=== PATIENT | male | born 1955 | race Caucasian/White ===

== ENCOUNTER 2023-01-17 09:28 | Outpatient (CLI) | payer MEDICARE, SELFPAY | END 2023-01-17 09:29 | disposition home or self-care (01) | LOC: NFLDREF 09:29 | PROVIDERS: PCP Internal Medicine; Visit Provider Internal Medicine | DX: E78.5 Hyperlipidemia, unspecified (principal); E66.9 Obesity, unspecified; R73.03 Prediabetes; Z86.73 Personal history of transient ischemic attack (TIA), and cerebral infarction without residual deficits | CPT/HCPCS: 80061; 82947; 85130 ==

== ENCOUNTER 2024-07-18 08:15 | Outpatient (CLI) | payer MEDICARE, SELFPAY ==
--- OUTSIDE RECORDS SUMMARY | 2024-07-18 11:00 | XMS_ITS | Clinical Summary ---
Author Organization [employer] [facility] Address [place], [place] [address] Care Team Providers Care Dock Worker Name Role Phone Jovita Garcia MD Primary Care Provider [phone] Allergies Active Allergy Reactions Criticality Noted Date Comments Simvastatin Myalgia 05/10/2010 At high doses devoloped myalgia Medications Medication Sig Dispensed Refills Start Date End Date Status metoprolol (LOPRESSOR) 25 mg tablet Take 0.5 tablets by mouth 2 times daily. 30 tablet 2 01/13/2010 Active amoxicillin (AMOXIL) 500 mg capsule Take 2,000 mg (4 capsules) one time 30-60 minutes prior to dental procedure. Prophylactic prior to dental procedure. 4 capsule 0 11/14/2012 Active warfarin (COUMADIN) 2.5 mg tablet Take 1 tablet by mouth once daily. 0 01/28/2018 Active omeprazole (PRILOSEC) 20 mg Delayed-Release capsule Take 1 Capsule (20 mg) by mouth once daily before a meal. 0 02/28/2023 Active Active Problems Problem Noted Date Diagnosed Date Acute upper GI hemorrhage 07/11/2020 Overview (07/13/2020): Jun 2020 secondary to esophageal tear s/p hemostatic clips Esophageal tear, initial encounter 07/11/2020 History of embolic stroke 07/11/2020 Anemia due to acute blood loss 07/11/2020 Paroxysmal A-fib 07/11/2020 Acute blood loss anemia 10/22/2016 Esophageal foreign body 10/20/2016 Acute kidney injury 10/01/2012 A-fib 09/29/2012 S/P AVR (aortic valve replacement) 09/26/2012 Overview (09/27/2012): Aortic valve and ascending aorta replacement with a [address] [facility] [employer] composite graft[address] Dr Percy RODAS (arteriosclerotic heart disease) 01/13/2010 Overview (01/13/2010): - angiogram 01/05/10: ?? The left main artery appeared normal. The LAD is angulated after D1, mild to moderate disease at this location. The circumflex artery has minimal disease. The RCA is dominant and appeared normal. - 01/06/10 Cardiac MRI: Multiple areas of delayed hyperenhancement involving the inferolateral wall, anterolateral wall, basal anteroseptum, and the basal to apical inferior wall. Microvascular obstruction visualized involving the very basal anteroseptum. Coronary embolism 01/13/2010 Overview (01/13/2010): - 01/06/10 Cardiac MRI: Multiple areas of delayed hyperenhancement involving the inferolateral wall, anterolateral wall, basal anteroseptum, and the basal to apical inferior wall. Microvascular obstruction visualized involving the very basal anteroseptum. Hypertrophic cardiomyopathy 01/13/2010 Overview (01/13/2010): - 01/06/10 Cardiac MRI: Hypertrophic cardiomyopathy with maximum wall thickness involving the basal anteroseptum, 22 mm. This is not definitive for familial HCM in the setting of significant aortic valve disease. No systolic anterior motion. Bicuspid aortic valve 01/13/2010 Overview (01/13/2010): - 01/06/10 Cardiac MRI: Bicuspid aortic valve with likely moderate aortic stenosis. Degree is not quantitated. There is fusion of the left and right coronary cusps. Lupus anticoagulant disorder 01/13/2010 Overview (01/13/2010): - + LAC - coumadin Dyslipidemia 01/13/2010 Overview (01/13/2010): - 01/06/10: TC 152, TG 103, HDL 31, LDL 100 - goal LDL < 70 in setting of ASHD Ascending aorta dilatation 01/13/2010 Overview (01/13/2010): - Cardiac MRI 01/06/10: Moderately dilated ascending aorta involving the sinuses of Valsalva measuring 4.9 cm. The proximal ascending aorta is 4 cm. On MR aortogram, there is no evidence of dissection or coarctation. Embolic Stroke with Diplopia 01/08/2010 Overview (01/13/2010): - 01/05/10 MRI Brain: Multiple punctate foci of acute infarction involving left frontal, parietal and occipital cortex as well as the brainstem. No hemorrhage or mass effect. A presence of multiple acute infarctions in multiple vascular territories suggest a central embolic source. - Seen by Neurology ACS (acute coronary syndrome) 01/05/2010 Diplopia 01/05/2010 Migraine 01/05/2010 Stiffness of joint, lower leg Acute respiratory failure Upper GI bleed Immunizations Name Administration Dates Next Due COVID-19 vaccine (Moderna 100mcg/0.5mL) CITLALLI ROBERTS 01/20/2021,12/22/2020 Tdap 09/08/2011 Family History Medical History Relation Name Comments Cancer Father Other Other No history of s trokes, heart disease in the family. Relation Name Status Comments Father Other Social History Tobacco Use Types Packs/Day Years Used Date Smoking Tobacco: Never Smokeless Tobacco: Never Tobacco Cessation:Counseling Given: Yes Alcohol Use Standard Drinks/Week Comments Yes 0 (1 standard drink = 0.6 oz pure alcohol) occasional drink; twice monthly Sex and Gender Information Value Date Recorded Sex Assigned at Not on file Gender Identity Not on file Sexual Orientation Not on file Obstetrics History Last Filed Vital Signs Vital Sign Reading Time Taken Comments Blood Pressure 133/81 02/28/2023 8:52 AM CDT Pulse 48 02/28/2023 8:52 AM CDT Temperature 36.6 ??C (97.9 ??F) 07/12/2020 4:00 PM CD T Respiratory Rate 18 04/06/2021 8:19 AM CDT Oxygen Saturation 98% 02/28/2023 8:52 AM CDT Inhaled Oxygen Concentration - - Weight 101.6 kg (224 lb) 02/28/2023 8:52 AM CDT Height 182.9 cm (6') 07/09/2020 6:02 PM CDT Body Mass Index 30.38 07/09/2020 6:02 PM CDT Plan of Treatment Health Maintenance Due Date Last Done Comments Depression screening for age 12+ 1968 Hepatitis C screening for age 18-79 1974 Colonoscopy through age 75 2001 Zoster (shingles) series for age 50+ (1 of 2) 2006 Lipids for age 45-75 09/25/2017 09/25/2012, 01/07/20 10 BMI (ht and wt on same day) for age 18+ 01/28/2019 01/28/2018 Tetanus booster 09/08/2021 09/08/2011 Medicare Wellness for age 65+ 2021 Pneumococcal series for age 65+ (1 of 1 - PCV) 2021 COVID-19 vaccine series ( season) 2024 08/06/2022, 01/20/2021, 12/22/2020 Influenza for age 65+ 06/15/2024 Tdap Completed 09/08/2011 Medical Devices Implanted Type Area Assistant Business Manager Device Identifier Shelf Expiration Date Model / Serial / Lot Anw Hh [id number] Implanted:Qty: 1 on 09/26/2012 by Alan Greer MD at [facility] Aortic Arch [facility] Cardiac Surgery 10/14/2015 [id number] / [id number] / [id number] Procedures Procedure Name Priority Date/Time Associated Diagnosis Comments LIPID PANEL Add On 09/25/2012 9:15 AM [employer] from Last 3 Months or Most Recently Relevant to Health Maintenance Results * (ABNORMAL) LIPID PANEL (09/25/2012 9:15 AM [employer]) CHOLESTEROL,TOTA L 156 100 - 199 mg/dL [facility] TRIGLYCERIDES 145 <150 mg/dL [facility] HDL CHOLESTEROL 32(L) >40 mg/dL [facility] CHOL/HDL RATIO 4.88(H) <4.50 [facility] NON-HDL CHOLESTEROL 124 Undefined mg/dL [facility] LDL CHOLESTEROL 95 <131 mg/dL [facility] PATIENT STATUS Fasting [facility] Blood specimen (specimen) BLOOD SPECIMEN / Unknown 09/25/2012 9:15 AM [employer] 09/25/2012 10:25 AM [employer] Carol Pastor [employer]MI[employer] [facility] [place]NAL ZIP [id number] [place] [id number] from Last 3 Months or Most Recently Relevant to Health Maintenance Advance Directives Documents on File Type Date Recorded Patient Informatics Pharmacist Expl anation Healthcare Directive 09/28/2012 11:39 AM Healthcare Directive * Full Code (Latest Code Status on File) Date Activated Date Inactivated Comments 07/09/2020 6:23 PM 07/13/2020 4:36 PM Question Answer Comments Code Status Discussion: Not Discussed * Full Code Date Activated Date Inactivated Comments 10/21/2016 12:37 PM 10/24/2016 1:40 PM * Full Code Date Activated Date Inactivated Comments 10/20/2016 7:45 AM 10/20/2016 4:25 PM * Full Code Date Activated Date Inactivated Comments 10/20/2016 4:14 AM 10/20/2016 7:45 AM Question Answer Comments Code Status Discussion: Discussed * Full Code Date Activated Date Inactivated Comments 09/26/2012 12:50 PM 10/04/2012 5:09 PM Care Teams Dock Worker Relationship Specialty Start Date End Date Jovita Garcia MD [address] [place] [address] PCP - General 02/16/10
== END 2024-07-18 08:16 | disposition home or self-care (01) ==
LOC: NFLDREF 10:58
PROVIDERS: PCP Internal Medicine; Referring Provider Internal Medicine; Visit Provider Internal Medicine
DX: R73.03 Prediabetes (principal); D68.59 Other primary thrombophilia; I25.10 Atherosclerotic heart disease of native coronary artery without angina pectoris; E66.9 Obesity, unspecified; E78.5 Hyperlipidemia, unspecified; Z12.5 Encounter for screening for malignant neoplasm of prostate
CPT/HCPCS: 80061; 82947; 85260; G0103

== ENCOUNTER 2024-09-25 13:20 | Outpatient (CLI) | payer MEDICARE, SELFPAY | END 2024-09-25 13:21 | disposition home or self-care (01) | LOC: NFLDREF 09-28 06:59 | PROVIDERS: PCP Internal Medicine; Referring Provider Internal Medicine; Visit Provider Internal Medicine | DX: D68.59 Other primary thrombophilia (principal) | CPT/HCPCS: 85260 ==

== ENCOUNTER 2024-11-10 10:32 | Emergency (ER) | payer MEDICARE, SELFPAY ==
[2024-11-10] VITALS (76 sets, daily range): BP systolic 94–182; BP diastolic 64–112; PULSE 65–83; RESP 16; TEMP 36.4; O2SAT 93–98; BMI 29.2
--- OUTSIDE RECORDS SUMMARY | 2024-11-10 10:35 | XMS_ITS | Clinical Summary ---
Author Organization [facility] Address [place], [place] [address] Care Team Providers Care Stack Matcher Name Role Phone Jovita Garcia MD Primary Care Provider [phone] Allergies Active Allergy Reactions Criticality Noted Date Comments Simvastatin Myalgia 05/10/2010 At high doses devoloped myalgia Medications amoxicillin (AMOXIL) 500 mg capsule Take 2,000 mg (4 capsules) one time 30-60 minutes prior to dental procedure. Prophylactic prior to dental procedure. 4 capsule 0 11/14/19 13 Active warfarin (COUMADIN) 2.5 mg tablet Take 1 tablet by mouth once daily. 0 01/29/20 18 Active omeprazole (PRILOSEC) 20 mg Delayed-Release capsule Take 1 Capsule (20 mg) by mouth once daily before a meal. 0 02/29/20 23 Active finasteride (PROSCAR) 5 mg tablet Take 5 mg by mouth once daily. 08/25/20 24 Active ezetimibe (ZETIA) 10 mg tablet Take 10 mg by mouth once daily. 07/21/20 24 Active cephalexin 500 mg capsule Take 500 mg by mouth three times daily. 08/06/20 24 Active alfuzosin (UROXATRAL) 10 mg Sustained-Relea se tablet Take 10 mg by mouth once daily with a meal. 08/25/20 24 Active nitroglycerin (NITROSTAT) 0.[address] 0.4 mg under the tongue every 5 minutes if needed for Chest Pain. Up to 3 tablets in 15 minutes. Active metoprolol tartrate (LOPRESSOR) 25 mg tabletIndicatio ns:Atrial flutter, unspecified type (HC) Take 0.5 Tablets (12.5 mg) by mouth two times daily. 30 Tablet 2 10/28/19 25 Active metoprolol (LOPRESSOR) 25 mg tablet Take 0.5 tablets by mouth 2 times daily. 30 tablet 2 01/14/20 10 025 Discontinued metoprolol tartrate (LOPRESSOR) 25 mg tabletIndicatio ns:Atrial flutter, unspecified type (HC) Take 0.5 Tablets (12.5 mg) by mouth 2 times daily if needed (for recurrent atrial flutter or HR > 100 bpm at rest). 30 Tablet 2 10/28/19 25 025 Discontinued Active Problems Problem Noted Date Diagnosed Date [...] disease) 01/13/2010 Overview (01/13/2010): - angiogram 01/05/10: The left main artery appeared normal. The [...] leg Acute respiratory failure Upper GI bleed Encounters Date Type Department Care Team Description 10/28/2024 1:02 PM PLANER HAND Anesthesia Event [facility] [address] [place] [address] Bebe Taylor MD Schlatter Von Payne, CONFERENCE AND EVENT ORGANISER 10/28/2024 10:17 AM PLANER HAND - 10/28/2024 2:14 PM PLANER HAND Hospital Encounter [facility] [address] [place] [address] Carlos Cunningham MD Anderson, Rebecca Faye, MD Atrial flutter, unspecified type (HC) (Primary Dx) Discharge Disposition: Home Self Care 10/28/2024 Travel 10/27/2024 Telephone [facility] [address] [place] [address] Carlos Cunningham MD Results (Factor X 19%-ok to proceed with cardioversion tomorrow (has had 4 weeks of therapeutic Factor X's)) 10/23/2024 10:00 AM PLANER HAND Orders Only [facility] [address] [place] [address] [place] 10/22/2024 Travel 10/20/2024 11:00 AM PLANER HAND Ancillary Procedure [facility] [address] [place] [address] 10/20/2024 Travel 10/20/2024 Telephone [facility] [address] [place] [address] Carlos Cunningham MD Results (Factor X) 10/16/2024 10:00 AM PLANER HAND Orders Only [facility] [address] [place] [address] [place] [facility] 10/16/2024 Travel 10/13/2024 Travel 2024 10:00 AM PLANER HAND Orders Only [facility] [address] [facility] [place] [address] Lab, [place] [facility] 2024 Travel 10/07/2024 Orders Only [facility] [address] [place] [address] Carlos Cunningham MD Lab 10/06/2024 Telephone [facility] [address] [facility] [address] [place], [place] [address] Carlos Cunningham MD Results 10/02/2024 9:45 AM PLANER HAND Orders Only [facility] [address] [place], [place] [address] Lab, [place] [facility] 10/02/2024 Travel 09/19/2024 Telephone [facility] [address] [place] [address] Carlos Cunningham MD Results (factor 10 chromogenic lab result ) 09/18/2024 2:40 PM PLANER HAND Orders Only [facility] [address] [place] [address] Lab 09/18/2024 1:30 PM PLANER HAND Office Visit [facility] [address] [place] [address] Carlos Cunningham MD Consult (New pt/Self referral/Reestablish care last seen 2018, AVR/zio monitor at [facility]) 09/18/2024 Orders Only [facility] [address] [place] [address] Carlos Cunningham MD <No scans attached> 09/18/2024 Travel from Last 3 Months Immunizations Name Administration Dates Next Due COVID-19 [...] oz pure alcohol) occasional drink; twice monthly Interpersonal Safety Answer Date Record ed Are you being hit, kicked, p ushed or yelled at (see row info)? No 10/28/2024 Interpersonal Safety Abuse 12 - 18 Not on file 10/28/2024 Interpersonal Safety Ambulatory Vulnerability No t on file 10/28/2024 Sex and Gender Information Value Date Recorded Sex Assigned at Not on file Legal Sex Male 5:39 AM PLANER HAND Gender Identity Not on file Sexual Orientation Not on file Obstetrics History Last Filed Vital Signs Vital Sign Reading Time Taken Comments Blood Pressure 121/66 10/28/2024 1:51 PM PLANER HAND Pulse 54 10/28/2024 1:51 PM PLANER HAND Temperature 36.6 C (97.9 F) 10/28/2024 1:51 PM PLANER HAND Respiratory Rate 16 10/28/2024 1:51 PM PLANER HAND Oxygen Saturation 97% 10/28/2024 1:51 PM PLANER HAND Inhaled Oxygen Concentration - - Weight 96.2 kg (212 lb) 10/28/2024 11:53 AM PLANER HAND Height 182.9 cm (6') 10/28/2024 11:53 AM PLANER HAND Body Mass Index 28.75 10/28/2024 11:53 AM PLANER HAND Plan of Treatment Upcoming Encounters Date Type Department Care Team (Late st Contact Info) Description 12/25/2024 2:30 PM CDT Office Visit [facility] [address] [place], [place] [id number] Carlos Cunningham MD [address] [facility] [address] [place], [place] [phone] Health Maintenance Due Date Last Done Comments Depression screening for age 12+ 1968 Hepatitis C screening for ag e 18-79 1974 Pneumococcal series for age 50+ (1 of 2 - PCV) 1975 Colonoscopy through age 75 2001 Zoster (shingles) series for age 50+ (1 of 2) 2006 RSV vaccine for adults or (1 - Risk 60-74 years 1-dose series) 2016 Lipids for age 45-75 09/25/2017 09/25/2012, 01/07/20 10 Tetanus booster 09/08/2021 09/08/2011 Medicare Wellness for age 65+ 2021 Influenza for age 65+ 06/15/2024 BMI (ht and wt on same day) for age 18+ 09/18/2025 09/18/2024, 01/28/2018 Tdap Completed 09/08/2011 COVID-19 vaccine series Completed 07/21/20 24, 07/13/2023, 08/06/2022, Additional history exists Medical Devices Implanted Type Area Back Winder Device Identifier Shelf Expiration Date Model / Serial / Lot Anw Hh [id number] Implanted:Qty: 1 on 09/26/2012 by Alan Greer MD at [facility] Aortic Arch [facility] [employer] Med Cardiac Surgery 10/14/2015 [id number] / [id number] / [id number] Procedures Procedure Name Priority Date/Time Associated Diagnosis Comments EKG 12 LEAD Post Op 10/28/2024 1:04 PM PLANER HAND EXTRA TUBE GOLD/SST Today 10/28/2024 1 1:28 AM PLANER HAND FACTOR 10 CHROMOGENIC Today 10/28/2024 11:28 AM PLANER HAND POTASSIUM JUDE 10/28/2024 11:28 AM PLANER HAND EKG 12 LEAD Preop 10/28/2024 11:19 AM PLANER HAND SCAN-CARDIAC STRIP 10/28/2024 12 :00 AM PLANER HAND FACTOR 10 CHROMOGENIC Routine 10/23/2024 10:04 AM PLANER HAND Atrial flutter, unspecified type (HC) Lupus anticoagulant disorder (HC) ECHO TTE COMPLETE WO CONTRAST Routine 10/20/2024 12:01 PM PLANER HAND Bicuspid aortic valve Atrial flutter, unspecified type (HC) FACTOR 10 CHROMOGENIC Routine 10/16/2024 10:03 AM PLANER HAND Atrial flutter, unspecified type (HC) Lupus anticoagulant disorder (HC) FACTOR 10 CHROMOGENIC Routine 2024 10:02 AM PLANER HAND Atrial flutter, unspecified type (HC) Lupus anticoagulant disorder (HC) FACTOR 10 CHROMOGENIC Routine 10/02/2024 9:52 AM PLANER HAND Persistent atrial fibrillation (HC) FACTOR 10 CHROMOGENIC Routine 09/18/2024 2:55 PM PLANER HAND Lupus anticoagulant disorder (HC) EKG 12 LEAD Routine 09/18/2024 2:11 PM PLANER HAND Atrial flutter, unspecified type (HC) LIPID PANEL Add On 09/25/2012 9:15 AM PLANER HAND from Last 3 Months or Most Recently Relevant to Health Maintenance Results * EKG (10/28/2024 1:04 PM PLANER HAND) Only the most recent of3 resultswithin the time period is included. Interpretation Sinus bradycardia Incomplete right bundle branch block T wave inversion in III and F Moderate voltage criteria for LVH, may be normal variant ( R in aVL , Dawson product ) Possible Septal infarct Abnormal ECG When compared with ECG of 28-Oct-2024 11:19, Significant changes have occurred BEYOND NOW Ventricular Rate 51 BPM BEYOND NOW Atrial Rate 51 BPM BEYOND NOW P-R Interval 202 ms BEYOND NOW QRS Duration 114 ms BEYOND NOW QT 472 ms BEYOND NOW QTc 435 ms BEYOND NOW P Newbern 49 degrees BEYOND NOW R Newbern -20 degrees BEYOND NOW T Newbern -2 degrees BEYOND NOW 10/28/2024 1:04 PM PLANER HAND 10/29/2024 7:03 PM PLANER HAND Narrative BEYOND NOW - 10/29/2024 7:03 PM PLANER HAND Test Indication: post us Cesilia WAGNER EKG ORD Final Result [place], [place] * EXTRA TUBE GOLD/SST (10/28/2024 11:28 AM PLANER HAND) Blood BLOOD SPECIMEN / Unknown Extra Tube / Unknown 10/28/2024 11:28 AM PLANER HAND 10/28/2024 11:35 AM PLANER HAND Carlos Cunningham MD LABORATORY Final Result Performing Organization Address [facility] Co de Phone Number [facility] [address] [place] [address], [place] * Potassium (10/28/2024 11:28 AM PLANER HAND) POTASSIUM 4.4 3.5 - 5.1 mmol/L 10/28/2024 11:56 AM PLANER HAND [facility] Blood BLOOD SPECIMEN / Unknown Venipuncture / Unknown 10/28/2024 11:28 AM PLANER HAND 10/28/2024 11:34 AM PLANER HAND Cesilia WAGNER CHEMISTRY Final Result Performing Organization Address [facility] Phone Number [facility] [address] [place] [address], [place] * (ABNORMAL) FACTOR 10 CHROMOGENIC (10/28/2024 11:28 AM PLANER HAND) Only the most recent of6 resultswithin the time period is included. FACTOR 10 CHROMOGENIC 20(L) 65 - 130 % 10/28/2024 11:54 AM PLANER HAND [facility] Blood BLOOD SPECIMEN / Unknown Venipuncture / Unknown 10/28/2024 11:28 AM PLANER HAND 10/28/2024 11:34 AM PLANER HAND Narrative [facility] - 10/28/2024 11:54 AM PLANER HAND Therapeutic Range 20-40% Cesilia WAGNER SEND OUTS Final Result Performing Organization Address [facility] Co de Phone Number [facility] [address] [place] [address], [place] * SCAN-CARDIAC STRIP (10/28/2024 12:00 AM PLANER HAND) Narrative 10/28/2024 12:00 AM PLANER HAND Ordered by an unspecified provider. Other Clinical Staff OTHER Final Resul t * ECHO TTE COMPLETE WO CONTRAST (10/20/2024 12:01 PM PLANER HAND) AORTIC VALVE MEAN PG 7 mmHg EJECTION FRACTION 56 % LVEDD 4.9 cm EJECTION FRACTION 55 - 60% Anatomical Region Laterality Modality Ultrasound 10/20/2024 11:0 7 AM PLANER HAND Narrative 10/20/2024 1:28 PM PLANER HAND ECHOCARDIOGRAM CARLOS ACEVES : 1955 69 years Study Date: 10/20/2024 11:07:28 AM Gender: M BP: 132/78 mmHg Height: 183.00 cm BSA: 2.20 m Weight: 98.00 kg Tech: [facility] Referring MD: CARLOS CUNNNIGHAM Site: [facility] Reading Location: Mobile OP Patient Location: Outpatient. Procedure: 2D, Color Doppler and Spectral Doppler. Indication for study: Bicuspid aortic valve; Atrial flutter, unspecified type (HC) Cardiac Rhythm: Regular.Study quality: Fair. Final Impressions: 1. Normal LV size, mildly increased wall thickness, estimated EF of 55 - 60%. 2. Mild RV enlargement, borderline normal systolic function. 3. S/P [address] [facility] AVR, MG 7 mmHg. 4. Normal caliber aorta. Comparison Compared to prior exam of 02/07/2018, there has been no significant change. Chamber Sizes and Function Normal left ventricular size, mildly increased wall thickness, normal global systolic function with an estimated EF of 55 - 60%. No resting regional wall motion abnormality visualized. Left atrial size is not well visualized. Left atrial pressure is normal. Right ventricular cavity size is mildly enlarged, global systolic RV function is borderline reduced. RV wall thickness is normal. The right atrium is normal. Right atrial volume index is 27 ml/m . Right atrial area is 19 cm . The pulmonary artery is of normal size and origin. The sinus of Valsalva is normal sized. The ascending aorta is normal sized. Valves, RV Pressures and Diastolic Function The aortic valve is functioning [address] [place] replacement, no stenosis and trivial regurgitation. The mitral valve is normal in structure, no mitral regurgitation. Normal diastolic function. The tricuspid valve is normal in structure. Tricuspid regurgitation is trace regurgitation. The pulmonic valve is not well visualized. Trace pulmonary regurgitation. Masses, Effusion, Shunts There is no pericardial effusion. The inferior vena cava is normal sized, respiratory size variation greater than 50%. No left to right shunting was detected by limited color flow Doppler interrogation of the interatrial septum. MEASUREMENTS AND CALCULATIONS 2-D Measurements and LV Function: LVID (d) 4.8 cm LV FS% (2D) 28 % LVID (s) 3.5 cm LVOT diameter 2.2 cm IVS (d) 1.2 cm HR 73 bpm LVPW (d) 1.2 cm RA Vol index 27 ml/m2 Ao Sinus 3.7 cm RA area 19 cm Asc Ao 3.7 cm RV Max 4C (d) 4.2 cm Diastology: Mitral Tissue Doppler E Peak 0.8 m/s e', Septum 0.08 m/s A Peak 0.5 m/s e', Lateral 0.12 m/s E/A 1.6 E/e' Average 8.12 DT 175 msec Aortic Valve: Vmax 1.8 m/s CARLY (V) 1.87 cm VTI 0.36 m CARLY (I) 1.88 cm LVOT V max 0.9 m/s Max PG 12 mmHg LVOT VTI 0.19 m Mean PG 7 mmHg SV 68 ml Dim Index 0.52 SV index 31 ml/m CO 5.0 l/min CI 2.3 l/min/m Mitral Valve: MVA 4.3 cm MV P 1/2 51 msec Tricuspid Valve and estimated PA pressures: TAPSE 1.3 cm . This study was interpreted by an [facility] accredited facility. Final Procedure Note Chris Dixon MD - 10/20/2024 ECHOCARDIOGRAM CARLOS ACEVES : 1955 69 years Study Date: 10/20/2024 11:07:28 AM Gender: M BP: 132/78 mmHg Height: 183.00 cm BSA: 2.20 m Weight: 98.00 kg Tech: [facility] Referring MD: CARLOS CUNNINGHAM Site: [facility] Reading Location: Mobile OP Patient Location: Outpatient. Procedure: 2D, Color Doppler and Spectral Doppler. Indication for study: Bicuspid aortic valve; Atrial flutter, unspecified type (HC) Cardiac Rhythm: Regular.Study quality: Fair. Final Impressions: 1. Normal LV size, mildly increased wall thickness, estimated EF of 55 -60%. 2. Mild RV enlargement, borderline normal systolic function. 3. S/P [address] [place]frid AVR, MG 7 mmHg. 4. Normal caliber aorta. Comparison Compared to prior exam of 02/07/2018, there has been no significantchange. Chamber Sizes and Function Normal left ventricular size, mildly increased wall thickness, normalglobal systolic function with an estimated EF of 55 - 60%. No restingregional wall motion abnormality visualized. Left atrial size is not wellvisualized. Left atrial pressure is normal. Right ventricular cavity sizeis mildly enlarged, global systolic RV function is borderline reduced. RVwall thickness is normal. The right atrium is normal. Right atrial volumeindex is 27 ml/m . Right atrial area is 19 cm . The pulmonary artery isof normal size and origin. The sinus of Valsalva is normal sized. Theascending aorta is normal sized. Valves, RV Pressures and Diastolic Function The aortic valve is functioning [address] [place] replacement, nostenosis and trivial regurgitation. The mitral valve is normal instructure, no mitral regurgitation. Normal diastolic function. Thetricuspid valve is normal in structure. Tricuspid regurgitation is traceregurgitation. The pulmonic valve is not well visualized. Trace pulmonaryregurgitation. Masses, Effusion, Shunts There is no pericardial effusion. The inferior vena cava is normal sized,respiratory size variation greater than 50%. No left to right shunting wasdetected by limited color flow Doppler interrogation of the interatrialseptum. MEASUREMENTS AND CALCULATIONS 2-D Measurements and LV Function: LVID (d) 4.8 cm LV FS% (2D) 28 % LVID (s) 3.5 cm LVOT diameter 2.2 cm IVS (d) 1.2 cm HR 73 bpm LVPW (d) 1.2 cm RA Vol index 27 ml/m2 Ao Sinus 3.7 cm RA area 19 cm Asc Ao 3.7 cm RV Max 4C (d) 4.2 cm Diastology: Mitral Tissue Doppler E Peak 0.8 m/s e', Septum 0.08 m/s A Peak 0.5 m/s e', Lateral 0.12 m/s E/A 1.6 E/e' Average 8.12 DT 175 msec Aortic Valve: Vmax 1.8 m/s CARLY (V) 1.87 cm VTI 0.36 m CARLY (I) 1.88 cm LVOT V max 0.9 m/s Max PG 12 mmHg LVOT VTI 0.19 m Mean PG 7 mmHg SV 68 ml Dim Index 0.52 SV index 31 ml/m CO 5.0 l/min CI 2.3 l/min/m Mitral Valve: MVA 4.3 cm MV P 1/2 51 msec Tricuspid Valve and estimated PA pressures: TAPSE 1.3 cm . This study was interpreted by an [facility] accredited facility. Final us Carlos Cunningham MD ECHO ORD Final Result * (ABNORMAL) LIPID PANEL (09/25/2012 9:15 AM PLANER HAND) [facility] Signature CHOLESTEROL,TOTA L 156 100 - 199 mg/dL [facility] TRIGLYCERIDES 145 <150 mg/dL [facility] HDL CHOLESTEROL 32(L) >40 mg/dL [facility] CHOL/HDL RATIO 4.88(H) <4.50 [facility] NON-HDL CHOLESTEROL 124 Undefined mg/dL [facility] LDL CHOLESTEROL 95 <131 mg/dL [facility] PATIENT STATUS Fasting [facility] Blood specimen (specimen) BLOOD SPECIMEN / Unknown 09/25/2012 9:15 AM PLANER HAND 09/25/2012 10:25 AM PLANER HAND us Carol Pastor NP CHEMISTRY Final Result [facility] INTERNAL ZIP [phone] [place] [id number] from Last 3 Months or Most Recently Relevant to Health Maintenance Insurance [employer] MEDICARE ADVANTAGE MR MEDICARE PART A HB ONLY Advance Directives Documents on File Type Date Recorded Patient Manager [employer] Expl anation Healthcare Directive 09/28/2012 11:39 AM [...] 12:50 PM 10/04/2012 5:09 PM Care Teams Stack Matcher Relationship Specialty Start Date End Date Jovita Garcia MD [address] [place] [address] PCP - General 02/16/10
--- NOTE | 2024-11-10 10:45 | ED_ITS ---
HPI - General Adult General Time Seen by Provider: 10:46 <Merced Tapia MD - Last Filed: 11/11/24 17:01> Date Seen: 11/10/24 <Merced Tapia MD - Last Filed: 11/11/24 17:01> Chief complaint: Chest Pain <Merced Tapia MD - Last Filed: 11/11/24 17:01> Stated complaint: Severe Chest Pain/SOB <Merced Tapia MD - Last Filed: 11/11/24 17:01> Time Seen by Provider: 11/10/24 10:44 <Merced Tapia MD - Last Filed: 11/11/24 17:01> Source: patient and RN notes reviewed <Merced Tapia MD - Last Filed: 0 11/11/24 17:01> Mode of arrival: ambulatory <Merced Tapia MD - Last Filed: 11/11/24 17:01> Limitations: no limitations <Merced Tapia MD - Last Filed: 11/11/24 17:01> History of Present Illness HPI narrative: Carlos is a 69-year-old male ambulatory into the ED of his own accord with about 45 minute episode of 5/10 chest discomfort. Was lower sternum to the left side of his chest. He was just sitting in a meeting when this started. He has a history of atrial flutter, had an ablation on Sunday of last week at [facility], today is Sunday. He has not had chest pain like this before. He did try 2 nitroglycerin which really did not help. He is not sure if he had a minor heart attack when he had his valve replacement. He had some mild strokes prior to getting his valve replaced and thinks there may have been a mild heart attack but he is not sure. He has had his aortic valve replaced with mechanical valve. He is on Coumadin for anticoagulation, he has a hypercoagulopathy and requires factor 10 monitoring for his anticoagulation. He states this was done just prior to the procedure and he has been therapeutic follow along. He cannot necessarily tell when he is in atrial flutter. He is unclear when he perhaps went back into this. There was some mild shortness of breath with it. When he laid down on the bed here in the ER, symptoms improved. He has not been sick with any cough or cold symptoms. He does suffer from some intermittent heartburn but is symptoms are not like this. He cannot say he is necessarily felt like this before. <Merced Tapia MD - Last Filed: 11/11/24 17:01> Related Data Home medications: Home Medications ?Medication ?Instructions ?Recorded ?Confirmed amoxicillin 500 mg capsule 2,000 mg PO .Once as needed PRN 01/22/23 11/10/24 omeprazole magnesium 20 mg 20 mg PO QDAY 01/22/23 11/10/24 tablet,delayed release (Prilosec OTC) alfuzosin 10 mg tablet,extended 10 mg PO DAILY 11/10/24 11/10/24 release 24 hr finasteride 5 mg tablet 5 mg PO DAILY 11/10/24 11/10/24 Previous Rx's ?Medication ?Instructions ?Recorded nitroglycerin 0.4 mg sublingual 0.4 mg sublingual Q5M PRN chest 01/22/23 tablet pain #30 tabs ezetimibe 10 mg tablet 10 mg PO QDAY #90 tabs 07/21/24 metoprolol tartrate 25 mg tablet 12.5 mg (1/2 x 25 mg) PO BID #90 07/21/24 tabs warfarin 2.5 mg tablet 2.5 mg PO QDAY #90 tabs 10/06/24 <Merced Tapia MD - Last Filed: 11/11/24 17:01> Allergies/adverse reactions: Allergies Allergy/AdvReac Type Severity Reaction Status Date / Time simvastatin AdvReac Unknown myalgia Verified 11/10/24 10:42 <Merced Tapia MD - Last Filed: 11/11/24 17:01> Review of Systems Status of ROS: Reports: 6 or more systems reviewed and unremarkable except as noted in History and below <Merced Tapia MD - Last Filed: 11/11/24 17:01> [facility] Medical History: Medical History History of pulmonary embolism ?Z86.711 - Personal history of pulmonary embolism (ICD-10) History of esophageal spasm ?Z87.19 - Personal history of other diseases of the digestive system (ICD-10) Olecranon bursitis of both elbows ?M70.21 - Olecranon bursitis, right elbow (ICD-10) ?M70.22 - Olecranon bursitis, left elbow (ICD-10) History of upper gastrointestinal hemorrhage ?Z87.19 - Personal history of other diseases of the digestive system (ICD-10) <Merced Tapia MD - Last Filed: 11/11/24 17:01> Surgical History: Surgical History History of basal cell carcinoma excision ?Z98.890 - Other specified postprocedural states (ICD-10) ?Z85.828 - Personal history of other malignant neoplasm of skin (ICD-10) History of hemorrhoidectomy ?Z98.890 - Other specified postprocedural states (ICD-10) History of aortic root repair ?Z98.890 - Other specified postprocedural states (ICD-10) History of aortic valve replacement (10/14/12) ?Z95.2 - Presence of prosthetic heart valve (ICD-10) <Merced Tapia MD - Last Filed: 11/11/24 17:01> Social History: Social History What is your current living situation?: I presently have a place to live Problems where you live: no known problems In the past 12 months, utilities in danger of being shut off: no In past 12 months, lack of transportation kept you from medical appts, meetings, work, or getting things needed for daily living: no In the past 12 mos, have been you worried that your food would run out before you had money to buy more?: never true In the past 12 mos, the food you bought just didn't last and you didn't have money to buy more?: never true Smoking Status: Never smoker Do you use any of these nicotine containing products: None How often do you have a drink containing alcohol: never How often do you have six or more drinks on one occasion: Never AUDIT-C Alcohol total score: 0 Non-prescribed substance use: denies use How often does anyone, including family, friends and others, physically hurt you : never How often does anyone, including family, friends and others, insult or talk down to you: rarely How often does anyone, including family, friends and others, threaten you with harm: never How often does anyone, including family, friends and others, scream or curse at you: never Health Related Social Needs: Other personal risk factors, not elsewhere classified (Z91.89) <Merced Tapia MD - Last Filed: 11/11/24 17:01> Exam Const: Vital Signs, click to edit/add: Vital Signs - 24 hr 11/10/24 17:04 11/10/24 17:05 11/10/24 17:15 Pulse Rate 79 78 79 Blood Pressure 138/92 H Pulse Oximetry 98 97 97 11/10/24 17:30 11/10/24 17:31 11/10/24 17:41 Pulse Rate 81 81 81 Blood Pressure 182/110 H 139/90 H Pulse Oximetry 96 97 98 11/10/24 17:45 11/10/24 18:00 11/10/24 18:01 Pulse Rate 80 80 81 Blood Pressure 129/88 Pulse Oximetry 98 97 97 11/10/24 18:15 11/10/24 18:30 11/10/24 18:31 Pulse Rate 81 80 79 Blood Pressure 136/89 Pulse Oximetry 97 97 97 11/10/24 18:45 11/10/24 19:00 11/10/24 19:01 Pulse Rate 75 79 70 Blood Pressure 127/86 Pulse Oximetry 96 96 97 11/10/24 19:15 11/10/24 19:30 11/10/24 19:31 Pulse Rate 74 73 79 Blood Pressure 130/80 Pulse Oximetry 97 97 97 11/10/24 19:48 11/10/24 20:00 11/10/24 20:01 Pulse Rate 80 79 78 Blood Pressure 146/91 H Pulse Oximetry 98 97 98 11/10/24 20:15 11/10/24 20:31 11/10/24 20:32 Pulse Rate 78 78 78 Blood Pressure 143/91 H Pulse Oximetry 98 97 97 11/10/24 20:45 11/10/24 21:00 11/10/24 21:01 Pulse Rate 78 78 83 Blood Pressure 152/112 H Pulse Oximetry 98 97 98 11/10/24 21:15 11/10/24 21:30 11/10/24 21:31 Pulse Rate 78 77 80 Blood Pressure 146/88 H Pulse Oximetry 98 98 98 11/10/24 21:45 Pulse Rate 77 Blood Pressure Pulse Oximetry 97 Patient is alert, interactive, no apparent distress. Nursing staff felt patient looked pale but seems to have some return color to his cheeks and face at this time. He is alert, interactive, no apparent distress. Pupils equal round reactive, sclera clear. Symmetrical facial function, speech normal. CV regular rate and rhythm, has aortic mechanical valve replacement sounds. Normal S1-S2. Lungs are clear, good air entry, wheeze or crackles, no tachypnea, accessory muscle use. Abdomen is soft, nontender, nondistended, no organomegaly. May have some mild upper diastasis rectus but he is nontender and there is no mass there. He has no lower extremity edema. Patient ambulated into the ED of his own accord. <Merced Tapia MD - Last Filed: 11/11/24 17:01> Vital Signs, click to edit/add: Vital Signs - 24 hr 11/10/24 17:04 11/10/24 17:05 11/10/24 17:15 Pulse Rate 79 78 79 Blood Pressure 138/92 H Pulse Oximetry 98 97 97 11/10/24 17:30 11/10/24 17:31 11/10/24 17:41 Pulse Rate 81 81 81 Blood Pressure 182/110 H 139/90 H Pulse Oximetry 96 97 98 11/10/24 17:45 11/10/24 18:00 11/10/24 18:01 Pulse Rate 80 80 81 Blood Pressure 129/88 Pulse Oximetry 98 97 97 11/10/24 18:15 11/10/24 18:30 11/10/24 18:31 Pulse Rate 81 80 79 Blood Pressure 136/89 Pulse Oximetry 97 97 97 11/10/24 18:45 11/10/24 19:00 11/10/24 19:01 Pulse Rate 75 79 70 Blood Pressure 127/86 Pulse Oximetry 96 96 97 11/10/24 19:15 11/10/24 19:30 11/10/24 19:31 Pulse Rate 74 73 79 Blood Pressure 130/80 Pulse Oximetry 97 97 97 11/10/24 19:48 11/10/24 20:00 11/10/24 20:01 Pulse Rate 80 79 78 Blood Pressure 146/91 H Pulse Oximetry 98 97 98 11/10/24 20:15 11/10/24 20:31 11/10/24 20:32 Pulse Rate 78 78 78 Blood Pressure 143/91 H Pulse Oximetry 98 97 97 11/10/24 20:45 11/10/24 21:00 11/10/24 21:01 Pulse Rate 78 78 83 Blood Pressure 152/112 H Pulse Oximetry 98 97 98 11/10/24 21:15 11/10/24 21:30 11/10/24 21:31 Pulse Rate 78 77 80 Blood Pressure 146/88 H Pulse Oximetry 98 98 98 11/10/24 21:45 Pulse Rate 77 Blood Pressure Pulse Oximetry 97 <Carlos Salgado MD - Last Filed: 11/11/24 10:02> Documenting provider has reviewed patient's vital signs: yes <Merced Tapia MD - Last Filed: 11/11/24 17:01> Course Course ED Course: Will get appropriate labs, patient will get EKG, cardiac monitoring, pulse oximetry. Will do portable chest x-ray, full complement of labs. Arrhythmia, ischemic disease, possible atypical presentation of infectious etiology or GI etiology is all possible. Will contact [facility] to talk to them about him. Will do initial point of care troponin but couple this with the troponin I in lab. He will need to follow up in 3 hours based on his presentation. It appears that this is atrial flutter but will see further on EKG and continue with the cardiac monitoring. <Merced Tapia MD - Last Filed: 11/11/24 17:01> Reevaluation(s) Time of Reevaluation #1: 11:33 <Merced Tapia MD - Last Filed: 11/11/24 17:01> Reevaluation #1: Patient is complaining of increasing nausea and chest discomfort is worse johann. Will try some Zofran. I do think that GI etiologies needs to be further considered such as gallbladder, possible gastritis or even peptic ulcer disease. His prior GI bleed was from an esophageal tear from what I see in the history. His initial troponin is normal. Will give patient a small dose of morphine to see if that does help. He already tried nitroglycerin and was not useful. Will hold off on any aspirin as I do think GI etiologies including possible ulcer disease or occult GI bleeding could be just as likely is ischemic disease. He is already anticoagulated. <Merced Tapia MD - Last Filed: 11/11/24 17:01> Time of Reevaluation #2: 13:30 <Merced Tapia MD - Last Filed: 11/11/24 17:01> Reevaluation #2: Patient did decline the Zofran and the morphine after was ordered, status he just wanted to monitor symptoms. Did just check on him, he is asymptomatic, has no symptoms any longer. We will be doing a follow-up EKG and troponin in about 20 minutes. Did look at prior hemoglobins but it looks like there with prior hospitalization and were back in 2019. On 07/12/2020 hemoglobin was 8.7, next day was 10.3. Do not have any recent hemoglobins to compare with. His MCV was low with a mildly low hemoglobin, did do a lab add on for ferritin and iron panel. Will also recheck hemoglobin with follow up troponin. <Merced Hartman MD - Last Filed: 11/11/24 17:01> Time of Reevaluation #3: 15:05 <Merced Tapia MD - Last Filed: 11/11/24 17:01> Reevaluation #3: Spoke with patient regarding the finding of the iron deficiency anemia. His troponins are normal. He remains in atrial flutter, was just cardioverted last week and has went back in atrial flutter. He has never felt symptomatic with chest pain or discomfort with atrial flutter before. Discussed my concern that he might have upper GI issues such as an ulcer or gastritis that is worsening, will give him an IV dose of Protonix. I have spoken with our hospitalist who does not feel that anesthesia will want to put him under sedation to do an EGD with his current cardiac potential issues. I personally do feel that this may be GI symptoms that he was having this morning as his troponins are normal and he has never been symptomatic with atrial flutter before. Our hospitalist Dr. Moncada thinks we should consider transferring this patient. Patient confirms that he is not been having any dark tarry stools or noted any blood in his stools. His reflux has not necessarily worsened. He is on omeprazole 20 mg daily. He believes that he has had colonoscopy maybe about 5 years ago. He did have an EGD before when they found the esophageal tear. <Merced Tapia MD - Last Filed: 11/11/24 17:01> Additional Reevaluation(s): 5:59 p.m.: Reviewed with patient that cardiology and electrophysiology both agree that he should transfer up there. He has questions because he waited about 4 weeks before the cardioverted him last time. Reviewed with him there is the complication of this discomfort he had earlier today, does not appear to be acute heart attack but certainly could be GI and he may need endoscopy more urgently. Putting him under for anesthesia for endoscopy while in active atrial flutter may be problematic and he could go into unstable rate with that. Thus, need for observation further monitoring. He will have his hemoglobin rechecked shortly, will add another troponin. He understands he is on a wait list for a bed. <Merced Tapia MD - Last Filed: 11/11/24 17:01> Consultations Consultation #1: Spoke with [facility] [employer] [facility] worker on-call Dr. Lockhart. She was able to compare the EKG I have today with his last 1 from the . She does not feel that there any acute ST elevations in no acute changes due to ischemia on the EKG I have, feels that this is likely from his atrial flutter. She states he last had a normal angiogram in 2011, his echo was just normal on the with normal aortic valve and normal EF. He does have a history of an upper GI bleed in June of 2020, there is reported history of HOCM but his last echo did not document this. She feels that she would monitor his symptoms, does wonder if this is maybe the recurrent atrial flutter. Will see where his tro ponins are, could consider repeat cardioversion or potentially antiarrhythmic. Will update her. Will get labs, treat accordingly. He is chronically anticoagulated. 3:11 p.m.: Spoke with Dr. Taylor from [facility]. She agrees that this patient has the continued a flutter as the 1st problem and is not an ideal candidate for cardioversion. Needs to consider EP evaluation. Or other problem is the anemia and she agrees he needs a repeat EGD. There closed cardiac transfers at this point. Patient will be wait listed. They are going to try to get EP on the phone to discuss this patient with me. 3:41 p.m.: Spoke with Dr. Chamberlain in electrophysiology. Given this patient's rate controlled, he does not believe antiarrhythmics are warranted. He agrees with transfer up there. They are currently closed to cardiac transfers and patient will be wait listed. We will update them if there is a change in this patient. Reviewed that the patient is anticoagulated. <Merced Tapia MD - Last Filed: 11/11/24 17:01> Time: 10:54 <Merced Tapia MD - Last Filed: 11/11/24 17:01> Consultation #2: Damian -- Inherited this patient at change of shift pending repeat troponin and hemoglobin. Vitals have been good and stable. He feels well without recurrence of discomfort. Is anticoagulated and there is concern of GI bleed. Recommendations are for admission and EGD however there are no beds available at this time. He is wait listed. Did discuss this with out-going physician again as hemoglobin and troponin returned reassuring; stable. Monitored for further time in the emergency department without event. Mr. Choudhury would prefer to discharge home to outpatient follow-up if possible, if safe. Again vital stability has been demonstrated here at this time. <Carlos Salgado MD - Last Filed: 11/11/24 10:02> Vital Signs Vital signs: Initial Vital Signs Temperature 97.6 F 11/10/24 10:35 Temperature Source Temporal Artery Scan 11/10/24 10:35 Pulse Rate 82 11/10/24 10:35 Respiratory Rate 16 11/10/24 10:35 Blood Pressure 107/70 11/10/24 10:35 Blood Pressure Mean 82 11/10/24 10:35 Blood Pressure Position Sitting 11/10/24 10:35 Pulse Oximetry 97 11/10/24 10:35 Oxygen Delivery Method Room Air 11/10/24 10:35 Vital Signs Temperature 97.6 F 11/10/24 10:35 Pulse Rate 82 11/10/24 10:35 Respiratory Rate 16 11/10/24 10:35 Blood Pressure 107/70 11/10/24 10:35 Pulse Oximetry 97 11/10/24 10:35 Oxygen Delivery Method Room Air 11/10/24 10:35 Temperature 97.6 F 11/10/24 10:35 Pulse Rate 77 11/10/24 21:45 Respiratory Rate 16 11/10/24 14:16 Blood Pressure 146/88 H 11/10/24 21:31 Pulse Oximetry 97 11/10/24 21:45 Oxygen Delivery Method Room Air 11/10/24 10:35 <Merced Tapia MD - Last Filed: 11/11/24 17:01> Initial Vital Signs Temperature 97.6 F 11/10/24 10:35 Temperature Source Temporal Artery Scan 11/10/24 10:35 Pulse Rate 82 11/10/24 10:35 Respiratory Rate 16 11/10/24 10:35 Blood Pressure 107/70 11/10/24 10:35 Blood Pressure Mean 82 11/10/24 10:35 Blood Pressure Position Sitting 11/10/24 10:35 Pulse Oximetry 97 11/10/24 10:35 Oxygen Delivery Method Room Air 11/10/24 10:35 Vital Signs Temperature 97.6 F 11/10/24 10:35 Pulse Rate 82 11/10/24 10:35 Respiratory Rate 16 11/10/24 10:35 Blood Pressure 107/70 11/10/24 10:35 Pulse Oximetry 97 11/10/24 10:35 Oxygen Delivery Method Room Air 11/10/24 10:35 Temperature 97.6 F 11/10/24 10:35 Pulse Rate 77 11/10/24 21:45 Respiratory Rate 16 11/10/24 14:16 Blood Pressure 146/88 H 11/10/24 21:31 Pulse Oximetry 97 11/10/24 21:45 Oxygen Delivery Method Room Air 11/10/24 10:35 <Carlos Salgado MD - Last Filed: 11/11/24 10:02> Medications Administered Medications: Discontinued Medications Generic Name Dose Route Start Last Admin Trade Name Freq PRN Reason Stop Dose Admin Morphine Sulfate 2 mg 11/10/24 11:34 11/10/24 11:40 Morphine 2 Mg/Ml Inj IVP 11/10/24 11:35 Not Given ONCE ONE Ondansetron HCl 4 mg 11/10/24 11:34 11/10/24 11:40 Ondansetron 2 Mg/Ml Inj IVP 11/10/24 11:35 Not Given ONCE ONE Pantoprazole Sodium 80 mg 11/10/24 15:15 11/10/24 15:25 Pantoprazole Sodium 40 Mg Inj IVP 11/10/24 15:16 80 mg ONCE ONE Administration <Merced Tapia MD - Last Filed: 11/11/24 17:01> Discontinued Medications Generic Name Dose Route Start Last Admin Trade Name Freq PRN Reason Stop Dose Admin Morphine Sulfate 2 mg 11/10/24 11:34 11/10/24 11:40 Morphine 2 Mg/Ml Inj IVP 11/10/24 11:35 Not Given ONCE ONE Ondansetron HCl 4 mg 11/10/24 11:34 11/10/24 11:40 Ondansetron 2 Mg/Ml Inj IVP 11/10/24 11:35 Not Given ONCE ONE Pantoprazole Sodium 80 mg 11/10/24 15:15 11/10/24 15:25 Pantoprazole Sodium 40 Mg Inj IVP 11/10/24 15:16 80 mg ONCE ONE Administration <Carlos Salgado MD - Last Filed: 11/11/24 10:02> Medical Decision Making Lab Data Lab results reviewed: Yes I reviewed the patient's lab results <Merced Tapia MD - Last Filed: 11/11/24 17:01> Labs: Lab Results 11/10/24 11/10/24 11/10/24 Range/Units 10:47 10:55 13:01 WBC 6.62 (4.50-11.00) K/uL RBC 4.87 (4.30-5.90) m/uL Hgb 11.4 L (13.5-17.5) gm/dL Hct 37.5 (37.0-53.0) % MCV 77 L (80-100) fL MCH 23 L (26-34) pg MCHC 30 L (32-36) gm/dL RDW Coeff of Charis 14.4 (11.5-15.5) % Plt Count 205 (140-440) K/uL Neut % (Auto) 62.3 (42.0-72.0) % Lymph % (Auto) 23.4 (20-44) % Woodson % (Auto) 10.0 (0.0-11.0) % Eos % (Auto) 3.6 (0.0-7.0) % Baso % (Auto) 0.5 (0.0-3.0) % Neut # (Auto) 4.13 (1.7-7.0) K/uL Lymph # (Auto) 1.55 (0.90-2.90) K/uL Woodson # (Auto) 0.70 (0.00-0.90) K/UL Eos # (Auto) 0.24 (0.00-0.50) K/uL Baso # (Auto) 0.03 (0.00-0.30) K/uL Abs Immat Gran (auto) 0.01 (0.00-0.30) K/uL Imm/Tot Granulo (auto) 0.2 % INR 3.71 H (0.91-1.10) VBG pH 7.409 (7.32-7.43) VBG pCO2 44 (40-50) mmHG VBG pO2 45.8 (25-47) mmHG VBG HCO3 28 (21-28) mmol/L Sodium 138 (135-149) mmol/L Potassium 4.0 (3.6-5.1) mmol/L Chloride 106 (96-114) mmol/L Carbon Dioxide 26 (20-32) mmol/L Anion Gap 6 L (7-15) mEq/L BUN 17 (7-30) mg/dL Creatinine 1.0 (0.5-1.5) mg/dL Estimated Creat Clear 77.60 Estimated GFR 82 ml/min Glucose 132 H (60-115) mg/dL Calcium 8.7 (8.4-10.6) mg/dL Magnesium 1.9 (1.5-2.6) mg/dL Iron 27 L (49-181) ug/dL TIBC 373 (261-462) ug/dL % Saturation 7 L (20-50) % Ferritin 9.6 L (17.9-464.0) ng/mL Total Bilirubin 0.6 (0.1-1.5) mg/dL AST 61 H (12-35) U/L ALT 33 (4-50) U/L Alkaline Phosphatase 65 (40-150) U/L Troponin I < 0.01 L (0.01-0.04) ng/mL NT-Pro-B Natriuret Pep 612 pg/mL Total Protein 6.7 (6.0-8.3) g/dL Albumin 3.8 (3.3-5.0) g/dL Lab Acknowledgement Test Added POC Troponin I 0.01 (0.01-0.04) ng/ml 11/10/24 11/10/24 Range/Units 13:46 20:05 WBC (4.50-11.00) K/uL RBC (4.30-5.90) m/uL Hgb 11.1 L 11.3 L (13.5-17.5) gm/dL Hct (37.0-53.0) % MCV (80-100) fL MCH (26-34) pg MCHC (32-36) gm/dL RDW Coeff of Charis (11.5-15.5) % Plt Count (140-440) K/uL Neut % (Auto) (42.0-72.0) % Lymph % (Auto) (20-44) % Woodson % (Auto) (0.0-11.0) % Eos % (Auto) (0.0-7.0) % Baso % (Auto) (0.0-3.0) % Neut # (Auto) (1.7-7.0) K/uL Lymph # (Auto) (0.90-2.90) K/uL Woodson # (Auto) (0.00-0.90) K/UL Eos # (Auto) (0.00-0.50) K/uL Baso # (Auto) (0.00-0.30) K/uL Abs Immat Gran (auto) (0.00-0.30) K/uL Imm/Tot Granulo (auto) % INR (0.91-1.10) VBG pH (7.32-7.43) VBG pCO2 (40-50) mmHG VBG pO2 (25-47) mmHG VBG HCO3 (21-28) mmol/L Sodium (135-149) mmol/L Potassium (3.6-5.1) mmol/L Chloride (96-114) mmol/L Carbon Dioxide (20-32) mmol/L Anion Gap (7-15) mEq/L BUN (7-30) mg/dL Creatinine (0.5-1.5) mg/dL Estimated Creat Clear Estimated GFR ml/min Glucose (60-115) mg/dL Calcium (8.4-10.6) mg/dL Magnesium (1.5-2.6) mg/dL Iron (49-181) ug/dL TIBC (261-462) ug/dL % Saturation (20-50) % Ferritin (17.9-464.0) ng/mL Total Bilirubin (0.1-1.5) mg/dL AST (12-35) U/L ALT (4-50) U/L Alkaline Phosphatase (40-150) U/L Troponin I < 0.01 L < 0.01 L (0.01-0.04) ng/mL NT-Pro-B Natriuret Pep pg/mL Total Protein (6.0-8.3) g/dL Albumin (3.3-5.0) g/dL Lab Acknowledgement POC Troponin I (0.01-0.04) ng/ml <Merced Tapia MD - Last Filed: 11/11/24 17:01> Lab Results 11/10/24 11/10/24 11/10/24 Range/Units 10:47 10:55 13:01 WBC 6.62 (4.50-11.00) K/uL RBC 4.87 (4.30-5.90) m/uL Hgb 11.4 L (13.5-17.5) gm/dL Hct 37.5 (37.0-53.0) % MCV 77 L (80-100) fL MCH 23 L (26-34) pg MCHC 30 L (32-36) gm/dL RDW Coeff of Charis 14.4 (11.5-15.5) % Plt Count 205 (140-440) K/uL Neut % (Auto) 62.3 (42.0-72.0) % Lymph % (Auto) 23.4 (20-44) % Woodson % (Auto) 10.0 (0.0-11.0) % Eos % (Auto) 3.6 (0.0-7.0) % Baso % (Auto) 0.5 (0.0-3.0) % Neut # (Auto) 4.13 (1.7-7.0) K/uL Lymph # (Auto) 1.55 (0.90-2.90) K/uL Woodson # (Auto) 0.70 (0.00-0.90) K/UL Eos # (Auto) 0.24 (0.00-0.50) K/uL Baso # (Auto) 0.03 (0.00-0.30) K/uL Abs Immat Gran (auto) 0.01 (0.00-0.30) K/uL Imm/Tot Granulo (auto) 0.2 % INR 3.71 H (0.91-1.10) VBG pH 7.409 (7.32-7.43) VBG pCO2 44 (40-50) mmHG VBG pO2 45.8 (25-47) mmHG VBG HCO3 28 (21-28) mmol/L Sodium 138 (135-149) mmol/L Potassium 4.0 (3.6-5.1) mmol/L Chloride 106 (96-114) mmol/L Carbon Dioxide 26 (20-32) mmol/L Anion Gap 6 L (7-15) mEq/L BUN 17 (7-30) mg/dL Creatinine 1.0 (0.5-1.5) mg/dL Estimated Creat Clear 77.60 Estimated GFR 82 ml/min Glucose 132 H (60-115) mg/dL Calcium 8.7 (8.4-10.6) mg/dL Magnesium 1.9 (1.5-2.6) mg/dL Iron 27 L (49-181) ug/dL TIBC 373 (261-462) ug/dL % Saturation 7 L (20-50) % Ferritin 9.6 L (17.9-464.0) ng/mL Total Bilirubin 0.6 (0.1-1.5) mg/dL AST 61 H (12-35) U/L ALT 33 (4-50) U/L Alkaline Phosphatase 65 (40-150) U/L Troponin I < 0.01 L (0.01-0.04) ng/mL NT-Pro-B Natriuret Pep 612 pg/mL Total Protein 6.7 (6.0-8.3) g/dL Albumin 3.8 (3.3-5.0) g/dL Lab Acknowledgement Test Added POC Troponin I 0.01 (0.01-0.04) ng/ml 11/10/24 11/10/24 Range/Units 13:46 20:05 WBC (4.50-11.00) K/uL RBC (4.30-5.90) m/uL Hgb 11.1 L 11.3 L (13.5-17.5) gm/dL Hct (37.0-53.0) % MCV (80-100) fL MCH (26-34) pg MCHC (32-36) gm/dL RDW Coeff of Charis (11.5-15.5) % Plt Count (140-440) K/uL Neut % (Auto) (42.0-72.0) % Lymph % (Auto) (20-44) % Woodson % (Auto) (0.0-11.0) % Eos % (Auto) (0.0-7.0) % Baso % (Auto) (0.0-3.0) % Neut # (Auto) (1.7-7.0) K/uL Lymph # (Auto) (0.90-2.90) K/uL Woodson # (Auto) (0.00-0.90) K/UL Eos # (Auto) (0.00-0.50) K/uL Baso # (Auto) (0.00-0.30) K/uL Abs Immat Gran (auto) (0.00-0.30) K/uL Imm/Tot Granulo (auto) % INR (0.91-1.10) VBG pH (7.32-7.43) VBG pCO2 (40-50) mmHG VBG pO2 (25-47) mmHG VBG HCO3 (21-28) mmol/L Sodium (135-149) mmol/L Potassium (3.6-5.1) mmol/L Chloride (96-114) mmol/L Carbon Dioxide (20-32) mmol/L Anion Gap (7-15) mEq/L BUN (7-30) mg/dL Creatinine (0.5-1.5) mg/dL Estimated Creat Clear Estimated GFR ml/min Glucose (60-115) mg/dL Calcium (8.4-10.6) mg/dL Magnesium (1.5-2.6) mg/dL Iron (49-181) ug/dL TIBC (261-462) ug/dL % Saturation (20-50) % Ferritin (17.9-464.0) ng/mL Total Bilirubin (0.1-1.5) mg/dL AST (12-35) U/L ALT (4-50) U/L Alkaline Phosphatase (40-150) U/L Troponin I < 0.01 L < 0.01 L (0.01-0.04) ng/mL NT-Pro-B Natriuret Pep pg/mL Total Protein (6.0-8.3) g/dL Albumin (3.3-5.0) g/dL Lab Acknowledgement POC Troponin I (0.01-0.04) ng/ml <Carlos Salgado MD - Last Filed: 11/11/24 10:02> Imaging Data Chest x-ray: Attestation: I have reviewed the pertinent imaging results. <Merced Hartman MD - Last Filed: 11/11/24 17:01> My impression: I see no acute cardiopulmonary pathology on my preliminary review. <Merced Tapia MD - Last Filed: 11/11/24 17:01> Radiologist's impression: Patient: CARLOS CHOUDHURY Facility:?[facility] Patient ID:?[id number] Site Patient ID:?[id number]. Site :?[id number] Study:?XRay-Chest 1V-11/10/2024 11:13:52 AM Ordering Physician:Elizabeth Blackwood Final Report: INDICATION: Chest pain, not otherwise described. COMPARISON: 07/08/2020 TECHNIQUE: 1 view. FINDINGS: Medical Devices: None. Lung Volumes: Adequate inspiration. No significant atelectasis. Lungs: Clear lungs. Pleura and Pleural spaces: No significant pleural effusion. No pneumothorax. Mediastinum: Normal cardiomediastinal silhouette. Bony Thorax and Soft Tissues: No significant incidental/interval findings. Median sternotomy. IMPRESSION: No findings to explain the clinical history. Incidental findings described in the body of the report. Dictated by Elmer Keane MD @ 11/10/2024 11:30:09 AM (Electronic Signature) <Merced Tapia MD - Last Filed: 11/11/24 17:01> ECG Data Attestation: I personally reviewed and interpreted this ECG as follows: (Atrial flutter with 4-1 conduction, there is appearance of flipped T-waves but I think this has to do with conduction changes with his flutter. Will talk to Cardiology.) <Merced Tapia MD - Last Filed: 11/11/24 17:01> Prior ECG tracings: not available for review (Note, hide and skin processing worker was sent a copy of this in did compared to his last EKG in atrial flutter, no concerns per her report.) <Merced Tapia MD - Last Filed: 11/11/24 17:01> Interpretation: EKG timed 1:57 p.m. shows atrial flutter with variable block, overall rate is 71 beats per minute. <Merced Tapia MD - Last Filed: 11/11/24 17:01> Discharge Plan Discharge Clinical Impression: Atrial flutter, Iron deficiency anemia <Merced Tapia MD - Last Filed: 11/11/24 17:01> Patient Disposition: Home w/ Parent or Adult <Merced Tapia MD - Last Filed: 11/11/24 17:01> Condition: Improved <Merced Tapia MD - Last Filed: 11/11/24 17:01> Additional Instructions: Given your stability of vitals and hemoglobin and improve symptoms it would appear that you are safe for discharge. We would like you to contact Cardiology 1st thing tomorrow to arrange for next steps in care which may include scheduling an EGD. We did speak with on-call hide and skin processing worker Drs. Lockhart and Claudia and Dr. Chamberlain in electrophysiology. Would arrange for recheck of labs by the end of the week. Continue to take your usual medications. Be seen more urgently for recurrence of chest pain, new lightheadedness or shortness of breath, abdominal pain, blackening stools. I help you can go on this trip to [place]. Have a great time. <Merced Tapia MD - Last Filed: 11/11/24 17:01> Prescriptions: No Action amoxicillin 500 mg capsule 2,000 mg PO .Once as needed PRN Rx Instructions: 1 HR PRIOR TO APPT omeprazole magnesium [Prilosec OTC] 20 mg tablet,delayed release (DR/EC) 20 mg PO QDAY nitroglycerin 0.4 mg tablet, sublingual 0.4 mg sublingual Q5M PRN (Reason: chest pain) Qty: 30 3RF Rx Instructions: PRN esophageal spasm and chest pain metoprolol tartrate 25 mg tablet 12.5 mg PO BID Qty: 90 3RF ezetimibe 10 mg tablet 10 mg PO QDAY Qty: 90 3RF finasteride 5 mg tablet 5 mg PO DAILY alfuzosin 10 mg tablet extended release 24 hr 10 mg PO DAILY warfarin 2.5 mg tablet 2.5 mg PO QDAY Qty: 90 0RF <Merced Tapia MD - Last Filed: 11/11/24 17:01> Follow Up/Referrals: Jovita Garcia MD [Primary Care Provider] - <Merced Tapia MD - Last Filed: 11/11/24 17:01> Stand [facility] Info Instructions <Merced Tapia MD - Last Filed: 11/11/24 17:01>
--- NOTE | 2024-11-10 10:46 | CRLHL7_ITS ---
For Patients: As a result of the Century Cures Act, medical imaging exams and procedure reports are released immediately into your electronic medical record. You may view this report before your referring provider. If you have questions, please contact your health care provider. INDICATION: Chest pain, not otherwise described. COMPARISON: 07/08/2020 TECHNIQUE: 1 view. FINDINGS: Medical Devices: None. Lung Volumes: Adequate inspiration. No significant atelectasis. Lungs: Clear lungs. Pleura and Pleural spaces: No significant pleural effusion. No pneumothorax. Mediastinum: Normal cardiomediastinal silhouette. Bony Thorax and Soft Tissues: No significant incidental/interval findings. Median sternotomy. IMPRESSION: No findings to explain the clinical history. Incidental findings described in the body of the report. Dictated by Elmer Keane MD @ 11/10/2024 11:30:09 AM (Electronically Signed)
[2024-11-10 11:07] LABS: HCO3 VBG 28 mmol/L (21-28); PCO2 VBG 44 mmHG (40-50); PO2 VBG 45.8 mmHG (25-47); pH VBG 7.409 (7.32-7.43)
[2024-11-10 11:12] LABS: Troponin, Point-of-Care* 0.01 ng/ml (0.01-0.04)
[2024-11-10 11:22] LABS: Basophils Absolute Auto 0.03 K/uL (0.00-0.30); Basophils Percent Auto 0.5 % (0.0-3.0); Eosinophils Absolute Auto 0.24 K/uL (0.00-0.50); Eosinophils Percent Auto 3.6 % (0.0-7.0); Hematocrit 37.5 % (37.0-53.0); Hemoglobin* 11.4 gm/dL (13.5-17.5); Immature Granulocytes Abs Auto 0.01 K/uL (0.00-0.30); Immature Granulocytes Pct Auto 0.2 %; Lymphocytes Absolute Auto 1.55 K/uL (0.90-2.90); Lymphocytes Percent Auto 23.4 % (20-44); Mean Corpuscular HGB Conc 30 gm/dL (32-36); Mean Corpuscular Hemoglobin 23 pg (26-34); Mean Corpuscular Volume 77 fL (80-100); Neutrophils Absolute Auto 4.13 K/uL (1.7-7.0); Neutrophils Percent Auto 62.3 % (42.0-72.0); Platelet Count* 205 K/uL (140-440); RDW Coefficient of Variation % 14.4 % (11.5-15.5); Red Blood Count 4.87 m/uL (4.30-5.90); White Blood Count* 6.62 K/uL (4.50-11.00)
[2024-11-10 11:24] LABS: Slide Review Reflex No
[2024-11-10 11:25] LABS: Albumin* 3.8 g/dL (3.3-5.0); Chloride* 106 mmol/L (96-114); Sodium* 138 mmol/L (135-149)
[2024-11-10 11:28] LABS: Alanine Aminotransferase* 33 U/L (4-50); Alkaline Phosphatase* 65 U/L (40-150); Anion Gap 6 mEq/L (7-15); Aspartate Amino Transferase* 61 U/L (12-35); Bilirubin Total* 0.6 mg/dL (0.1-1.5); Blood Urea Nitrogen* 17 mg/dL (7-30); Carbon Dioxide* 26 mmol/L (20-32); Estimated Glomerular Filt Rate 82 ml/min; Glucose* 132 mg/dL (60-115); Total Protein* 6.7 g/dL (6.0-8.3)
[2024-11-10 11:29] LABS: Calcium* 8.7 mg/dL (8.4-10.6); INR 3.71 (0.91-1.10); Magnesium* 1.9 mg/dL (1.5-2.6); Prothrombin Time 39.7 Seconds
--- OUTSIDE RECORDS SUMMARY | 2024-11-10 11:39 | XMS_ITS | Clinical Summary ---
Author Organization [facility] Address [place], [place] [address] Care Team Providers Care Social Media Director Name Role Phone Jovita Garcia MD Primary Care Provider [phone] Allergies Active Allergy Reactions Criticality Noted Date [...] Department Care Team Description 10/28/2024 1:02 PM TEXTILES SALES REPRESENTATIVE Anesthesia Event [facility] [address] [place] [address] Bebe Taylor MD Schlatter Von Payne, [employer] INSTRUCTOR 10/28/2024 10:17 AM TEXTILES SALES REPRESENTATIVE - 10/28/2024 2:14 PM TEXTILES SALES REPRESENTATIVE Hospital Encounter [facility] [address] [place] [address] Carlos Cunningham MD Anderson, Rebecca Faye, MD Atrial flutter, unspecified type (HC) (Primary Dx) Discharge Disposition: Home Self Care 10/28/2024 Travel 10/27/2024 Telephone [facility] [place] [address] [place] [address] Carlos Cunningham MD Results (Factor X 19%-ok to proceed with cardioversion tomorrow (has had 4 weeks of therapeutic Factor X's)) 10/23/2024 10:00 AM TEXTILES SALES REPRESENTATIVE Orders Only [facility] [address] [place] [address] Lab, [place] Lab 10/22/2024 Travel 10/20/2024 11:00 AM TEXTILES SALES REPRESENTATIVE Ancillary Procedure [facility] [address] [facility] [place] [address] 10/20/2024 Travel 10/20/2024 Telephone [facility] [address] [place] [address] Carlos Cunningham MD Results (Factor X) 10/16/2024 10:00 AM TEXTILES SALES REPRESENTATIVE Orders Only [facility] [address] [place] [address] Lab, [place] [facility] 10/16/2024 Travel 10/13/2024 Travel 2024 10:00 AM TEXTILES SALES REPRESENTATIVE Orders Only [facility] [address] [facility] [place] [address] Lab, [place] [facility] 2024 Travel 10/07/2024 Orders Only [facility] [place] [address] [place] [address] Carlos Cunningham MD Lab 10/06/2024 Telephone [facility] [address] [place], [place] [address] Carlos Cunningham MD Results 10/02/2024 9:45 AM TEXTILES SALES REPRESENTATIVE Orders Only [facility] [address] [place], [place] [address] Lab, [place] [facility] 10/02/2024 Travel 09/19/2024 Telephone [facility] [address] [place] [address] Carlos Cunningham MD Results (factor 10 chromogenic lab result ) 09/18/2024 2:40 PM TEXTILES SALES REPRESENTATIVE Orders Only [facility] [address] [place] [address] Lab 09/18/2024 1:30 PM TEXTILES SALES REPRESENTATIVE Office Visit [facility] [address] [place] [address] Carlos Cunningham MD Consult (New pt/Self referral/Reestablish care last seen 2018, AVR/zio monitor at [facility]) 09/18/2024 Orders Only [facility] [address] [place] [address] Carlos Cunningham MD <No scans attached> 09/18/2024 [...] on file Legal Sex Male 5:39 AM TEXTILES SALES REPRESENTATIVE Gender Identity Not on file Sexual Orientation Not on file Obstetrics History Last Filed Vital Signs Vital Sign Reading Time Taken Comments Blood Pressure 121/66 10/28/2024 1:51 PM TEXTILES SALES REPRESENTATIVE Pulse 54 10/28/2024 1:51 PM TEXTILES SALES REPRESENTATIVE Temperature 36.6 C (97.9 F) 10/28/2024 1:51 PM TEXTILES SALES REPRESENTATIVE Respiratory Rate 16 10/28/2024 1:51 PM TEXTILES SALES REPRESENTATIVE Oxygen Saturation 97% 10/28/2024 1:51 PM TEXTILES SALES REPRESENTATIVE Inhaled Oxygen Concentration - - Weight 96.2 kg (212 lb) 10/28/2024 11:53 AM TEXTILES SALES REPRESENTATIVE Height 182.9 cm (6') 10/28/2024 11:53 AM TEXTILES SALES REPRESENTATIVE Body Mass Index 28.75 10/28/2024 11:53 AM TEXTILES SALES REPRESENTATIVE Plan of Treatment Upcoming Encounters Date Type Department Care Team (Late st Contact Info) Description 12/25/2024 2:30 PM CDT Office Visit [facility] [address] [place], [place] [id number] Carlos Cunningham MD [address] [facility] [address] [place], [place] [address] Health Maintenance Due Date Last Done Comments [...] history exists Medical Devices Implanted Type Area Log Data Technician Device Identifier Shelf Expiration Date Model / Serial / Lot Anw Hh [id number] Implanted:Qty: 1 on 09/26/2012 by Alan Greer MD at [facility] Aortic Arch [facility] [facility] Cardiac Surgery 10/14/2015 [id number]# / [id number] / [id number] Procedures Procedure Name Priority Date/Time Associated Diagnosis Comments EKG 12 LEAD Post Op 10/28/2024 1:04 PM TEXTILES SALES REPRESENTATIVE EXTRA TUBE GOLD/SST Today 10/28/2024 1 1:28 AM TEXTILES SALES REPRESENTATIVE FACTOR 10 CHROMOGENIC Today 10/28/2024 11:28 AM TEXTILES SALES REPRESENTATIVE POTASSIUM JUDE 10/28/2024 11:28 AM TEXTILES SALES REPRESENTATIVE EKG 12 LEAD Preop 10/28/2024 11:19 AM TEXTILES SALES REPRESENTATIVE SCAN-CARDIAC STRIP 10/28/2024 12 :00 AM TEXTILES SALES REPRESENTATIVE FACTOR 10 CHROMOGENIC Routine 10/23/2024 10:04 AM TEXTILES SALES REPRESENTATIVE Atrial flutter, unspecified type (HC) Lupus anticoagulant disorder (HC) ECHO TTE COMPLETE WO CONTRAST Routine 10/20/2024 12:01 PM TEXTILES SALES REPRESENTATIVE Bicuspid aortic valve Atrial flutter, unspecified type (HC) FACTOR 10 CHROMOGENIC Routine 10/16/2024 10:03 AM TEXTILES SALES REPRESENTATIVE Atrial flutter, unspecified type (HC) Lupus anticoagulant disorder (HC) FACTOR 10 CHROMOGENIC Routine 2024 10:02 AM TEXTILES SALES REPRESENTATIVE Atrial flutter, unspecified type (HC) Lupus anticoagulant disorder (HC) FACTOR 10 CHROMOGENIC Routine 10/02/2024 9:52 AM TEXTILES SALES REPRESENTATIVE Persistent atrial fibrillation (HC) FACTOR 10 CHROMOGENIC Routine 09/18/2024 2:55 PM TEXTILES SALES REPRESENTATIVE Lupus anticoagulant disorder (HC) EKG 12 LEAD Routine 09/18/2024 2:11 PM TEXTILES SALES REPRESENTATIVE Atrial flutter, unspecified type (HC) LIPID PANEL Add On 09/25/2012 9:15 AM TEXTILES SALES REPRESENTATIVE from Last 3 Months or Most Recently Relevant to Health Maintenance Results * EKG (10/28/2024 1:04 PM TEXTILES SALES REPRESENTATIVE) Only the most recent of3 resultswithin the [...] NOW QTc 435 ms BEYOND NOW P [place] 49 degrees BEYOND NOW R [place] -20 degrees BEYOND NOW T [place] -2 degrees BEYOND NOW 10/28/2024 1:04 PM TEXTILES SALES REPRESENTATIVE 10/29/2024 7:03 PM TEXTILES SALES REPRESENTATIVE Narrative BEYOND NOW - 10/29/2024 7:03 PM TEXTILES SALES REPRESENTATIVE Test Indication: post us Cesilia WAGNER EKG ORD Final Result BEYOND NOW [place], [place] * EXTRA TUBE GOLD/SST (10/28/2024 11:28 AM TEXTILES SALES REPRESENTATIVE) Blood BLOOD SPECIMEN / Unknown Extra Tube / Unknown 10/28/2024 11:28 AM TEXTILES SALES REPRESENTATIVE 10/28/2024 11:35 AM TEXTILES SALES REPRESENTATIVE Carlos Cunningham MD LABORATORY Final Result Performing Organization Address [facility] Co de Phone Number [facility] [address] [place] [address], [place] * Potassium (10/28/2024 11:28 AM TEXTILES SALES REPRESENTATIVE) POTASSIUM 4.4 3.5 - 5.1 mmol/L 10/28/2024 11:56 AM TEXTILES SALES REPRESENTATIVE [facility] Blood BLOOD SPECIMEN / Unknown Venipuncture / Unknown 10/28/2024 11:28 AM TEXTILES SALES REPRESENTATIVE 10/28/2024 11:34 AM TEXTILES SALES REPRESENTATIVE Cesilia WAGNER CHEMISTRY Final Result Performing Organization Address [facility] Phone Number [facility] [address] [place] [address], [place] * (ABNORMAL) FACTOR 10 CHROMOGENIC (10/28/2024 11:28 AM TEXTILES SALES REPRESENTATIVE) Only the most recent of6 resultswithin the time period is included. FACTOR 10 CHROMOGENIC 20(L) 65 - 130 % 10/28/2024 11:54 AM TEXTILES SALES REPRESENTATIVE [facility] Blood BLOOD SPECIMEN / Unknown Venipuncture / Unknown 10/28/2024 11:28 AM TEXTILES SALES REPRESENTATIVE 10/28/2024 11:34 AM TEXTILES SALES REPRESENTATIVE Narrative [facility] - 10/28/2024 11:54 AM TEXTILES SALES REPRESENTATIVE Therapeutic Range 20-40% Cesilia WAGNER SEND OUTS Final Result Performing Organization Address [facility] Co de Phone Number [facility] [address] [place] [address], [place] * SCAN-CARDIAC STRIP (10/28/2024 12:00 AM TEXTILES SALES REPRESENTATIVE) Narrative 10/28/2024 12:00 AM TEXTILES SALES REPRESENTATIVE Ordered by an unspecified provider. Other Clinical Staff OTHER Final Resul t * ECHO TTE COMPLETE WO CONTRAST (10/20/2024 12:01 PM TEXTILES SALES REPRESENTATIVE) AORTIC VALVE MEAN PG 7 mmHg EJECTION FRACTION 56 % LVEDD 4.9 cm EJECTION FRACTION 55 - 60% Anatomical Region Laterality Modality Ultrasound 10/20/2024 11:0 7 AM TEXTILES SALES REPRESENTATIVE Narrative 10/20/2024 1:28 PM TEXTILES SALES REPRESENTATIVE ECHOCARDIOGRAM CARLOS ACEVES : 1955 69 years Study Date: 10/20/2024 11:07:28 AM Gender: M BP: 132/78 mmHg Height: 183.00 cm BSA: 2.20 m Weight: 98.00 kg Tech: [facility] Referring MD: CARLOS CUNNINGHAM Site: [facility] [place] Location: Mobile OP Patient Location: Outpatient. [...] . This study was interpreted by an [facility] accredited facility. Final Procedure Note Chris Dixon MD - 10/20/2024 ECHOCARDIOGRAM CARLOS ACEVES : 1955 69 years Study Date: 10/20/2024 11:07:28 AM Gender: M BP: 132/78 mmHg Height: 183.00 cm BSA: 2.20 m Weight: 98.00 kg Tech: [facility] Referring MD: CARLOS CUNNINGHAM Site: [facility] [place] Location: Mobile OP Patient Location: Outpatient. [...] . This study was interpreted by an [facility] accredited facility. Final us Carlos Cunningham MD ECHO ORD Final Result * (ABNORMAL) LIPID PANEL (09/25/2012 9:15 AM TEXTILES SALES REPRESENTATIVE) [facility] Signature CHOLESTEROL,TOTA L 156 100 - 199 mg/dL [facility] TRIGLYCERIDES 145 <150 mg/dL [facility] HDL CHOLESTEROL 32(L) >40 mg/dL [facility] CHOL/HDL RATIO 4.88(H) <4.50 [facility] NON-HDL CHOLESTEROL 124 Undefined mg/dL [facility] LDL CHOLESTEROL 95 <131 mg/dL [facility] PATIENT STATUS Fasting [facility] Blood specimen (specimen) BLOOD SPECIMEN / Unknown 09/25/2012 9:15 AM TEXTILES SALES REPRESENTATIVE 09/25/2012 10:25 AM TEXTILES SALES REPRESENTATIVE us Carol Pastor NP CHEMISTRY Final Result [facility] INTERNAL ZIP [phone] [place] [id number] from Last 3 Months or Most Recently Relevant to Health Maintenance Insurance [employer] MEDICARE ADVANTAGE MR MEDICARE PART A HB ONLY Advance Directives Documents on File Type Date Recorded Patient Quality Assurance Consultant Expl anation Healthcare Directive 09/28/2012 11:39 AM [...] 12:50 PM 10/04/2012 5:09 PM Care Teams Social Media Director Relationship Specialty Start Date End Date Jovita Garcia MD [address] [place] [address] PCP - General 02/16/10
[2024-11-10 11:42] LABS: NT Pro B Type NatriureticPept* 612 pg/mL; Troponin I* < 0.01 ng/mL (0.01-0.04)
[2024-11-10 13:27] LABS: Iron* 27 ug/dL (49-181)
[2024-11-10 13:36] LABS: Percent Iron Saturation 7 % (20-50); Total Iron Binding Capacity 373 ug/dL (261-462)
[2024-11-10 14:04] LABS: Ferritin* 9.6 ng/mL (17.9-464.0)
[2024-11-10 14:06] LABS: Hemoglobin* 11.1 gm/dL (13.5-17.5)
[2024-11-10 14:36] LABS: Troponin I* < 0.01 ng/mL (0.01-0.04)
[2024-11-10] MEDS: PANTOPRAZOLE SODIUM 40 MG INJ 80 MG IVP (15:25)
--- NOTE | 2024-11-10 17:36 | ED.NURSE ---
Pt provided with water, chicken broth.
[2024-11-10 20:07] LABS: Hemoglobin* 11.3 gm/dL (13.5-17.5)
[2024-11-10 20:43] LABS: Troponin I* < 0.01 ng/mL (0.01-0.04)
== END 2024-11-10 22:18 | disposition home or self-care (01) ==
PROVIDERS: Emergency Provider Family Medicine; PCP Internal Medicine
DX: I48.92 Unspecified atrial flutter (principal); R07.89 Other chest pain; D50.9 Iron deficiency anemia, unspecified; Z79.01 Long term (current) use of anticoagulants; Z86.711 Personal history of pulmonary embolism; Z95.2 Presence of prosthetic heart valve; R11.0 Nausea; Z86.73 Personal history of transient ischemic attack (TIA), and cerebral infarction without residual deficits; I25.10 Atherosclerotic heart disease of native coronary artery without angina pectoris; R06.02 Shortness of breath
CPT/HCPCS: 36415; 71045; 80053; 82728; 82803; 83540; 83550; 83735; 83880; 84484; 85018; 85025; 85610; 93005; 94761; 96374; 99285; J2470

== ENCOUNTER 2024-12-03 08:27 | Outpatient (CLI) | payer MEDICARE, SELFPAY | END 2024-12-03 08:28 | disposition home or self-care (01) | LOC: NFLDREF 12-08 08:46 | PROVIDERS: PCP Internal Medicine; Referring Provider Internal Medicine; Visit Provider Internal Medicine | DX: E78.5 Hyperlipidemia, unspecified (principal); D68.59 Other primary thrombophilia | CPT/HCPCS: 80061; 85260 ==

== ENCOUNTER 2025-04-07 14:00 | Outpatient (CLI) | payer MEDICARE, SELFPAY | END 2025-04-07 14:01 | disposition home or self-care (01) | LOC: NFLDREF 14:02 | PROVIDERS: PCP Internal Medicine; Visit Provider Internal Medicine | DX: E78.5 Hyperlipidemia, unspecified (principal); D68.59 Other primary thrombophilia | CPT/HCPCS: 80061; 85260 ==

== ENCOUNTER 2025-04-10 15:48 | Outpatient (CLI) | payer MEDICARE, SELFPAY | END 2025-04-10 15:49 | disposition home or self-care (01) | LOC: NFLDREF 04-14 13:16 | PROVIDERS: PCP Internal Medicine; Referring Provider Internal Medicine; Visit Provider Internal Medicine | DX: R31.0 Gross hematuria (principal); K59.00 Constipation, unspecified | CPT/HCPCS: 87086 ==

== ENCOUNTER 2025-10-13 14:34 | Outpatient (CLI) | payer MEDICARE, SELFPAY | END 2025-10-13 14:35 | disposition home or self-care (01) | LOC: NFLDREF 10-20 14:39 | PROVIDERS: PCP Internal Medicine; Referring Provider Internal Medicine; Visit Provider Internal Medicine | DX: I25.10 Atherosclerotic heart disease of native coronary artery without angina pectoris (principal); R73.03 Prediabetes; Z12.5 Encounter for screening for malignant neoplasm of prostate | CPT/HCPCS: 80061; 82947; 85260; G0103 ==